=== PATIENT | male | born 1950 | race African-American/Black ===

== ENCOUNTER 2020-02-11 15:01 | Inpatient (IN) | payer MEDICARE, MEDICAID ==
[~2020-02-11] VITALS: Ht 182.9 cm; Wt 70.8 kg
[2020-02-11] MEDS ORDERED: AZITHROMYCIN 500 MG TABLET PO ONE (15:30)
[2020-02-11] MEDS ORDERED: CEFTRIAXONE 1 G PREMIX 50 ML IV ONE (15:30)
[2020-02-11] MEDS ORDERED: FUROSEMIDE 20MG/2ML VIAL IVP ONE (15:30)
[2020-02-11 15:42] LABS: BASOPHILS % 1.1 % (0.0-2.0); EOSINOPHILS % 0.1 % (0.0-5.0); HEMATOCRIT. 51.1 % (42.0-52.0); HEMOGLOBIN. 16.3 g/dL (14.0-18.0); LYMPHOCYTES % 12.5 % (20.0-50.0); MEAN CORPUSCULAR HEMOGLOBIN 28.7 pg (28.0-32.0); MEAN PLATELET VOLUME 7.3 fl (7.4-10.4); MONOCYTES % 8.1 % (2.0-8.0); NEUTROPHILS % 78.2 % (40.0-76.0); PLATELET 175 x1000/uL (130-400); RED BLOOD CELL COUNT 5.68 mill/uL (4.7-6.1); RED CELL DISTRIBUTION WIDTH 16.3 % (11.6-14.6)
[2020-02-11 15:48] LABS: CHLORIDE 100 mEq/L (98-107)
[2020-02-11] MEDS ORDERED: NITROGLYCERIN 0.4MG TABLET SL SL ONE (16:00)
[2020-02-11] MEDS ORDERED: NITROGLYCERIN 50MG PREMIX 250 ML IV ONE (16:00)
[2020-02-11] MEDS ORDERED: MORPHINE SULFATE 2 MG/ML CPJ (NOT FOR IM USE) IV PRN (19:30)
[2020-02-11] MEDS ORDERED: ACETAMINOPHEN 325MG TABLET PO PRN (19:30)
[2020-02-11] MEDS ORDERED: ONDANSETRON HCL 4MG/2ML INJ IV PRN (19:30)
[2020-02-11] MEDS ORDERED: MAGNESIUM/ALUMINUM HYDROXIDE/SIMETHICONE 30ML UDC PO PRN (19:30)
[2020-02-11] MEDS ORDERED: GUAIFENESIN 200MG/10ML SUGAR FREE UDC PO PRN (19:30)
[2020-02-11] MEDS ORDERED: CLONIDINE 0.1MG TABLET PO PRN (19:30)
[2020-02-11] MEDS ORDERED: HYDROCODONE/ACETAMINOPHEN 5/325MG TABLET PO PRN (19:30)
[2020-02-11] MEDS ORDERED: DOCUSATE SODIUM 100MG CAPSULE PO PRN (19:30)
[2020-02-11] MEDS ORDERED: ENOXAPARIN 40MG/0.4ML SYR SUBCUT SCH (21:00)
[2020-02-11] MEDS ORDERED: HYDRALAZINE 20MG/ML VIAL IV PRN (23:00)
[2020-02-11] MEDS ORDERED: NITROGLYCERIN OINT 1GM/INCH UDPKT TD PRN (23:15)
[2020-02-12] VITALS (49 sets, daily range): BP systolic 43–139; BP diastolic 19–98
[2020-02-12 00:12] LABS: CREATINE KINASE 25 IU/L (39-308)
[2020-02-12] MEDS ORDERED: ASPI-1158 PO (05:10)
[2020-02-12] MEDS ORDERED: OMEP40CA12 PO (05:10)
[2020-02-12] MEDS ORDERED: MONT10TA26 PO (05:10)
[2020-02-12] MEDS ORDERED: TAMS-11 PO (05:11)
[2020-02-12] MEDS ORDERED: ASCO500C15 PO (05:11)
[2020-02-12] MEDS ORDERED: TRAM50TA3 PO (05:11)
[2020-02-12] MEDS: FUROSEMIDE 40MG/4ML VIAL IV SCH (09:00)
[2020-02-12] MEDS ORDERED: METHYLPREDNISOLONE SOD SUCC 40 MG/ML VIAL IV SCH (09:00)
[2020-02-12] MEDS: AMLODIPINE 10MG TABLET PO SCH (09:00)
[2020-02-12] MEDS ORDERED: PROPOFOL 10MG/ML 100ML 100 ML IV PRN (09:15)
[2020-02-12 09:32] LABS: HEMATOCRIT. 49.3 % (42.0-52.0); HEMOGLOBIN. 14.6 g/dL (14.0-18.0); MEAN CORPUSCULAR HEMOGLOBIN 28.2 pg (28.0-32.0); MEAN CORPUSCULAR VOLUME 95.3 fL (80.0-94.0); MEAN PLATELET VOLUME 8.3 fl (7.4-10.4); PLATELET 154 x1000/uL (130-400); RED BLOOD CELL COUNT 5.17 mill/uL (4.7-6.1); RED CELL DISTRIBUTION WIDTH 16.2 % (11.6-14.6)
[2020-02-12 09:33] LABS: CHLORIDE 106 mEq/L (98-107)
[2020-02-12 09:39] LABS: LDL CHOLESTEROL 104 mg/dL (5-100)
[2020-02-12 09:40] LABS: CREATINE KINASE 82 IU/L (39-308); HDL CHOLESTEROL 26 mg/dL (40-59)
[2020-02-12] MEDS ORDERED: PHENYLEPHRINE 40 MG in DEXT 5% WATER 246 ML IV PRN (09:45)
[2020-02-12] MEDS: PHENYLEPHRINE 40 MG in DEXT 5% WATER 246 ML IV PRN ×4 (09:52→22:17)
[2020-02-12] MEDS: FENTANYL CITRATE/PF 1,000 MCG in SODIUM CHLORIDE 0.9% 80 ML IV PRN (09:53)
[2020-02-12] MEDS ORDERED: NOREPINEPHRINE 32 MG in DEXT 5% WATER 468 ML IV PRN (10:00)
[2020-02-12 10:12] LABS: BG BASE EXCESS -0.1 mmol/L (-2.0-2.0); BG CARBOXYHEMOGLOBIN 1.1 % (0.5-1.5); BG DEOXYHEMOGLOBIN 1.9 % (0.0-5.0); BG FRACTION INSPIRED OXYGEN 100; BG HCO3 ACT 34.3 mmol/L (22.0-26.0); BG METHEMOGLOBIN 0.6 % (0.0-1.5); BG OXYGEN SATURATION 98.1 % (92.0-98.5); BG OXYHEMOGLOBIN 96.4 % (94.0-97.0); BG PCO2 119.5 mmHg (35.0-45.0); BG PH 7.076 (7.350-7.450); BG PO2 110.3 mmHg (75.0-100.0); BG SAMPLE SITE RIGHT RADIAL; BG TIDAL VOLUME(mL) 500 mL; BG TOTAL HEMOGLOBIN 15.5 g/dL (12.0-18.0); BG VENT MODE VENT - A/C; BG VENT RATE 14 set
[2020-02-12] MEDS: ENOXAPARIN 40MG/0.4ML SYR SUBCUT SCH (10:49)
[2020-02-12] MEDS: VASOPRESSIN 10 UNIT in SODIUM CHLORIDE 0.9% 99.5 ML IV PRN ×3 (12:00→20:28)
[2020-02-12 12:08] LABS: NUCLEATED RED BLOOD CELLS 1 /100 WBC; PLATELET ESTIMATE NORMAL
[2020-02-12] MEDS ORDERED: CEFTRIAXONE 1,000 MG in DEXTROSE 5% WATER 50 ML IV SCH (13:00)
[2020-02-12 13:27] LABS: BG CARBOXYHEMOGLOBIN 1.3 % (0.5-1.5); BG FRACTION INSPIRED OXYGEN 100; BG HCO3 ACT 29.5 mmol/L (22.0-26.0); BG METHEMOGLOBIN 0.4 % (0.0-1.5); BG OXYGEN SATURATION 90.8 % (92.0-98.5); BG OXYHEMOGLOBIN 89.3 % (94.0-97.0); BG PCO2 68.7 mmHg (35.0-45.0); BG PH 7.251 (7.350-7.450); BG PO2 58.4 mmHg (75.0-100.0); BG SAMPLE SITE RIGHT RADIAL; BG TIDAL VOLUME(mL) 500 mL; BG TOTAL HEMOGLOBIN 16.5 g/dL (12.0-18.0); BG VENT MODE VENT - A/C; BG VENT RATE 24 set
[2020-02-12] MEDS ORDERED: AZITHROMYCIN 500 MG in DEXT 5% WATER 250 ML IV SCH ×2 (14:00→16:00)
[2020-02-12] MEDS: PIPERACILLIN/TAZOBACTAM 3.375 G in DEXT 5% WATER 100 ML IV SCH ×2 (15:23→22:16)
[2020-02-12] MEDS ORDERED: CEFTRIAXONE 1 G PREMIX 50 ML IV SCH (16:00)
[2020-02-12] MEDS: VANCOMYCIN 1250MG in DEXTROSE 5% WATER 250ML IV SCH (16:00)
[2020-02-12 20:56] LABS: INR 1.7
[2020-02-12] MEDS: METHYLPREDNISOLONE SOD SUCC 40 MG/ML VIAL IV SCH (22:16)
[2020-02-13] VITALS (42 sets, daily range): BP systolic 70–151; BP diastolic 44–129
[2020-02-13] MEDS: VASOPRESSIN 10 UNIT in SODIUM CHLORIDE 0.9% 99.5 ML IV PRN ×2 (00:34→06:20)
[2020-02-13] MEDS: PHENYLEPHRINE 40 MG in DEXT 5% WATER 246 ML IV PRN ×2 (06:21→07:28)
[2020-02-13] MEDS: PIPERACILLIN/TAZOBACTAM 3.375 G in DEXT 5% WATER 100 ML IV SCH ×4 (06:23→20:20)
[2020-02-13] MEDS: METHYLPREDNISOLONE SOD SUCC 40 MG/ML VIAL IV SCH ×3 (06:49→20:20)
[2020-02-13] MEDS: AMLODIPINE 10MG TABLET PO SCH (09:00)
[2020-02-13 09:17] LABS: BG BASE EXCESS 1.7 mmol/L (-2.0-2.0); BG CARBOXYHEMOGLOBIN 0.9 % (0.5-1.5); BG DEOXYHEMOGLOBIN 5.6 % (0.0-5.0); BG FRACTION INSPIRED OXYGEN 100; BG HCO3 ACT 28.1 mmol/L (22.0-26.0); BG METHEMOGLOBIN 0.3 % (0.0-1.5); BG OXYGEN SATURATION 94.3 % (92.0-98.5); BG OXYHEMOGLOBIN 93.2 % (94.0-97.0); BG PH 7.367 (7.350-7.450); BG PO2 72.4 mmHg (75.0-100.0); BG SAMPLE SITE RIGHT BRACHIAL; BG TIDAL VOLUME(mL) 500 mL; BG TOTAL HEMOGLOBIN 16.2 g/dL (12.0-18.0); BG VENT MODE VENT - A/C; BG VENT RATE 24 set
[2020-02-13] MEDS: FUROSEMIDE 40MG/4ML VIAL IV SCH (09:29)
[2020-02-13] MEDS: ENOXAPARIN 40MG/0.4ML SYR SUBCUT SCH (09:29)
[2020-02-13] MEDS: VANCOMYCIN 1250MG in DEXTROSE 5% WATER 250ML IV SCH (12:48)
[2020-02-13] MEDS: PANTOPRAZOLE SODIUM 40 MG/VIAL IV SCH (13:46)
[2020-02-13] MEDS: METOPROLOL TARTRATE 5MG/5ML VIAL IV PRN (16:26)
[2020-02-13] MEDS: FENTANYL CITRATE/PF 1,000 MCG in SODIUM CHLORIDE 0.9% 80 ML IV PRN (16:33)
[2020-02-13 16:54] LABS: HEMATOCRIT. 45.1 % (42.0-52.0); HEMOGLOBIN. 14.4 g/dL (14.0-18.0); MEAN CORPUSCULAR HEMOGLOBIN 28.4 pg (28.0-32.0); MEAN CORPUSCULAR VOLUME 89.2 fL (80.0-94.0); MEAN PLATELET VOLUME 8.9 fl (7.4-10.4); PLATELET 109 x1000/uL (130-400); RED BLOOD CELL COUNT 5.06 mill/uL (4.7-6.1); RED CELL DISTRIBUTION WIDTH 16.5 % (11.6-14.6)
[2020-02-13 17:40] LABS: PLATELET ESTIMATE DECREASED
[2020-02-13] MEDS: PHENYLEPHRINE 80 MG in DEXT 5% WATER 492 ML IV PRN (19:50)
[2020-02-13 22:41] LABS: CLARITY URINE CLOUDY (CLEAR); COLOR URINE YELLOW (YELLOW); KETONES URINE TRACE (NEGATIVE); LEUKOCYTE ESTERASE URINE NEGATIVE (NEGATIVE); NITRITE URINE NEGATIVE (NEGATIVE); OCCULT BLOOD URINE 3+ (NEGATIVE); PROTEIN URINE 1+ (NEGATIVE); SPECIFIC GRAVITY URINE 1.027 (1.005-1.030); UROBILINOGEN URINE 0.2 E.U./dL (0.2-1.0)
[2020-02-14] VITALS (90 sets, daily range): BP systolic 57–196; BP diastolic 22–134
[2020-02-14] MEDS: PIPERACILLIN/TAZOBACTAM 3.375 G in DEXT 5% WATER 100 ML IV SCH ×2 (02:04→08:04)
[2020-02-14] MEDS: METOPROLOL TARTRATE 5MG/5ML VIAL IV PRN ×3 (02:26→23:36)
[2020-02-14] MEDS: METHYLPREDNISOLONE SOD SUCC 40 MG/ML VIAL IV SCH (03:26)
[2020-02-14] MEDS: PHENYLEPHRINE 80 MG in DEXT 5% WATER 492 ML IV PRN ×2 (04:01→12:40)
[2020-02-14] MEDS: FENTANYL CITRATE/PF 1,000 MCG in SODIUM CHLORIDE 0.9% 80 ML IV PRN ×2 (04:07→14:45)
[2020-02-14] MEDS: VANCOMYCIN 1250MG in DEXTROSE 5% WATER 250ML IV SCH (04:28)
[2020-02-14 06:19] LABS: HEMATOCRIT. 44.5 % (42.0-52.0); HEMOGLOBIN. 14.2 g/dL (14.0-18.0); MEAN CORPUSCULAR HEMOGLOBIN 28.3 pg (28.0-32.0); MEAN CORPUSCULAR VOLUME 88.8 fL (80.0-94.0); MEAN PLATELET VOLUME 8.5 fl (7.4-10.4); PLATELET 115 x1000/uL (130-400); RED BLOOD CELL COUNT 5.01 mill/uL (4.7-6.1); RED CELL DISTRIBUTION WIDTH 16.8 % (11.6-14.6)
[2020-02-14 07:18] LABS: BG BASE EXCESS -2.6 mmol/L (-2.0-2.0); BG CARBOXYHEMOGLOBIN 0.4 % (0.5-1.5); BG FRACTION INSPIRED OXYGEN 95; BG HCO3 ACT 24.6 mmol/L (22.0-26.0); BG METHEMOGLOBIN 0.3 % (0.0-1.5); BG OXYGEN SATURATION 86.9 % (92.0-98.5); BG OXYHEMOGLOBIN 86.3 % (94.0-97.0); BG PCO2 51.9 mmHg (35.0-45.0); BG PH 7.294 (7.350-7.450); BG PO2 59.2 mmHg (75.0-100.0); BG SAMPLE SITE RIGHT RADIAL; BG TIDAL VOLUME(mL) 500 mL; BG TOTAL HEMOGLOBIN 15.5 g/dL (12.0-18.0); BG VENT MODE VENT - A/C; BG VENT RATE 24 set
[2020-02-14] MEDS: PANTOPRAZOLE SODIUM 40 MG/VIAL IV SCH (08:03)
[2020-02-14] MEDS: FUROSEMIDE 40MG/4ML VIAL IV SCH (08:03)
[2020-02-14] MEDS: ENOXAPARIN 40MG/0.4ML SYR SUBCUT SCH (08:03)
[2020-02-14] MEDS: AMLODIPINE 10MG TABLET PO SCH (08:04)
[2020-02-14] MEDS ORDERED: CEFEPIME 1,000 MG in DEXTROSE 5% WATER 50 ML IV SCH ×2 (12:30→14:00)
[2020-02-14 13:51] LABS: PLATELET ESTIMATE DECREASED
[2020-02-14] MEDS: METRONIDAZOLE 500 MG PREMIX 100 ML IV SCH ×2 (14:37→22:11)
[2020-02-14] MEDS ORDERED: LEVOFLOXACIN 500MG TABLET PO SCH (15:15)
[2020-02-14] MEDS ORDERED: PIPERACILLIN/TAZOBACTAM 2.25 G in DEXTROSE 5% WATER 50 ML IV SCH (16:00)
[2020-02-14] MEDS ORDERED: DOCUSATE SODIUM 100MG CAPSULE NG PRN (18:00)
[2020-02-14] MEDS: DEXT 5%/0.9% NACL 1,000 ML IV SCH (18:03)
[2020-02-14] MEDS: ENOXAPARIN 60MG/0.6ML SYR SUBCUT SCH (22:11)
[2020-02-15] VITALS (77 sets, daily range): BP systolic 59–200; BP diastolic 15–134
[2020-02-15] MEDS: PHENYLEPHRINE 80 MG in DEXT 5% WATER 492 ML IV PRN ×3 (01:32→21:38)
[2020-02-15] MEDS: METRONIDAZOLE 500 MG PREMIX 100 ML IV SCH ×3 (06:02→23:25)
[2020-02-15] MEDS: PANTOPRAZOLE SODIUM 40 MG/VIAL IV SCH (09:10)
[2020-02-15] MEDS: METHYLPREDNISOLONE SOD SUCC 40 MG/ML VIAL IV SCH (09:10)
[2020-02-15 09:58] LABS: BG BASE EXCESS -2.6 mmol/L (-2.0-2.0); BG CARBOXYHEMOGLOBIN 0.8 % (0.5-1.5); BG FRACTION INSPIRED OXYGEN 100; BG HCO3 ACT 26.3 mmol/L (22.0-26.0); BG METHEMOGLOBIN 0.3 % (0.0-1.5); BG OXYGEN SATURATION 83.8 % (92.0-98.5); BG OXYHEMOGLOBIN 82.9 % (94.0-97.0); BG PCO2 62.5 mmHg (35.0-45.0); BG PH 7.242 (7.350-7.450); BG PO2 57.2 mmHg (75.0-100.0); BG SAMPLE SITE RIGHT RADIAL; BG TIDAL VOLUME(mL) 500 mL; BG TOTAL HEMOGLOBIN 15.8 g/dL (12.0-18.0); BG VENT MODE VENT - A/C; BG VENT RATE 26 set
[2020-02-15] MEDS: FENTANYL CITRATE/PF 1,000 MCG in SODIUM CHLORIDE 0.9% 80 ML IV PRN ×4 (10:54→23:54)
[2020-02-15 12:19] LABS: HEMATOCRIT. 48.2 % (42.0-52.0); HEMOGLOBIN. 14.9 g/dL (14.0-18.0); MEAN CORPUSCULAR VOLUME 90.3 fL (80.0-94.0); MEAN PLATELET VOLUME 9.3 fl (7.4-10.4); PLATELET 97 x1000/uL (130-400); RED BLOOD CELL COUNT 5.34 mill/uL (4.7-6.1)
[2020-02-15 12:46] LABS: CHLORIDE 95 mEq/L (98-107)
[2020-02-15 13:03] LABS: BG BASE EXCESS -2.6 mmol/L (-2.0-2.0); BG CARBOXYHEMOGLOBIN 0.7 % (0.5-1.5); BG DEOXYHEMOGLOBIN 9.5 % (0.0-5.0); BG FRACTION INSPIRED OXYGEN 100; BG HCO3 ACT 24.3 mmol/L (22.0-26.0); BG METHEMOGLOBIN 0.4 % (0.0-1.5); BG OXYGEN SATURATION 90.4 % (92.0-98.5); BG OXYHEMOGLOBIN 89.4 % (94.0-97.0); BG PCO2 49.4 mmHg (35.0-45.0); BG PH 7.309 (7.350-7.450); BG PO2 65.7 mmHg (75.0-100.0); BG SAMPLE SITE RIGHT BRACHIAL; BG TOTAL HEMOGLOBIN 15.6 g/dL (12.0-18.0); BG VENT MODE VENT - A/C; BG VENT RATE 28 set
[2020-02-15] MEDS ORDERED: SODIUM BICARBONATE 8.4% 1 MEQ/ML 50ML SYR IV SCH (13:15)
[2020-02-15 13:23] LABS: PLATELET ESTIMATE DECREASED
[2020-02-15] MEDS: CEFEPIME 2,000 MG in DEXT 5% WATER 100 ML IV SCH (14:00)
[2020-02-15 14:37] LABS: BG TIDAL VOLUME(mL) 550 mL
[2020-02-15 18:49] LABS: BG CARBOXYHEMOGLOBIN 0.9 % (0.5-1.5); BG DEOXYHEMOGLOBIN 2.1 % (0.0-5.0); BG FRACTION INSPIRED OXYGEN 100; BG HCO3 ACT 26.3 mmol/L (22.0-26.0); BG METHEMOGLOBIN 0.3 % (0.0-1.5); BG OXYGEN SATURATION 97.9 % (92.0-98.5); BG OXYHEMOGLOBIN 96.7 % (94.0-97.0); BG PCO2 48.8 mmHg (35.0-45.0); BG PH 7.349 (7.350-7.450); BG PO2 106.9 mmHg (75.0-100.0); BG SAMPLE SITE LEFT RADIAL; BG TIDAL VOLUME(mL) 550 mL; BG TOTAL HEMOGLOBIN 15.6 g/dL (12.0-18.0); BG VENT MODE VENT - A/C; BG VENT RATE 20 set
[2020-02-15] MEDS: ENOXAPARIN 60MG/0.6ML SYR SUBCUT SCH (21:23)
[2020-02-16] VITALS (86 sets, daily range): BP systolic 61–177; BP diastolic 21–135
[2020-02-16] MEDS: DEXT 5%/0.9% NACL 1,000 ML IV SCH ×2 (03:05→19:45)
[2020-02-16] MEDS: METRONIDAZOLE 500 MG PREMIX 100 ML IV SCH ×3 (05:06→21:12)
[2020-02-16] MEDS: PHENYLEPHRINE 80 MG in DEXT 5% WATER 492 ML IV PRN ×2 (05:38→16:08)
[2020-02-16 06:03] LABS: HEMOGLOBIN. 13.9 g/dL (14.0-18.0); MEAN CORPUSCULAR HEMOGLOBIN 27.8 pg (28.0-32.0); MEAN CORPUSCULAR VOLUME 89.7 fL (80.0-94.0); PLATELET 77 x1000/uL (130-400); RED BLOOD CELL COUNT 5.01 mill/uL (4.7-6.1); RED CELL DISTRIBUTION WIDTH 16.6 % (11.6-14.6)
[2020-02-16 08:29] LABS: BG VENT MODE VENT - A/C
[2020-02-16] MEDS: PANTOPRAZOLE SODIUM 40 MG/VIAL IV SCH (09:41)
[2020-02-16] MEDS: METHYLPREDNISOLONE SOD SUCC 40 MG/ML VIAL IV SCH (09:41)
[2020-02-16 11:27] LABS: PLATELET ESTIMATE DECREASED
[2020-02-16] MEDS: CEFEPIME 2,000 MG in DEXT 5% WATER 100 ML IV SCH (13:38)
[2020-02-16 18:03] LABS: BG DEOXYHEMOGLOBIN 1.2 % (0.0-5.0); BG FRACTION INSPIRED OXYGEN 100; BG HCO3 ACT 23.9 mmol/L (22.0-26.0); BG METHEMOGLOBIN 0.5 % (0.0-1.5); BG OXYGEN SATURATION 98.8 % (92.0-98.5); BG OXYHEMOGLOBIN 98.3 % (94.0-97.0); BG PCO2 44.8 mmHg (35.0-45.0); BG PH 7.345 (7.350-7.450); BG PO2 157.9 mmHg (75.0-100.0); BG SAMPLE SITE RIGHT BRACHIAL; BG TIDAL VOLUME(mL) 550 mL; BG TOTAL HEMOGLOBIN 15.2 g/dL (12.0-18.0); BG VENT MODE VENT - A/C; BG VENT RATE 30 set
[2020-02-16 18:33] LABS: BG SAMPLE SITE R BRACHIAL
[2020-02-16 18:34] LABS: BG FRACTION INSPIRED OXYGEN 100; BG PEEP (cmH2O) 10 cmH2O; BG TIDAL VOLUME(mL) 550 mL; BG VENT RATE 30 set
[2020-02-16 18:35] LABS: BG PH 7.195 (7.350-7.450)
[2020-02-16 18:36] LABS: BG HCO3 ACT 27.2 mmol/L (22.0-26.0); BG PO2 176.4 mmHg (75.0-100.0)
[2020-02-16 18:37] LABS: BG TOTAL HEMOGLOBIN 15.7 g/dL (12.0-18.0)
[2020-02-16 18:38] LABS: BG CARBOXYHEMOGLOBIN 0.6 % (0.5-1.5); BG METHEMOGLOBIN 0.5 % (0.0-1.5); BG OXYHEMOGLOBIN 97.9 % (94.0-97.0)
[2020-02-16] MEDS ORDERED: DIGOXIN 500MCG/2ML AMP IV NR (19:00)
[2020-02-16] MEDS: FENTANYL CITRATE/PF 1,000 MCG in SODIUM CHLORIDE 0.9% 80 ML IV PRN (21:18)
[2020-02-17] VITALS (93 sets, daily range): BP systolic 73–200; BP diastolic 37–99
[2020-02-17] MEDS: PHENYLEPHRINE 80 MG in DEXT 5% WATER 492 ML IV PRN ×2 (01:05→10:01)
[2020-02-17 06:03] LABS: HEMATOCRIT. 44.2 % (42.0-52.0); HEMOGLOBIN. 13.9 g/dL (14.0-18.0); MEAN CORPUSCULAR HEMOGLOBIN 27.9 pg (28.0-32.0); MEAN CORPUSCULAR VOLUME 88.8 fL (80.0-94.0); MEAN PLATELET VOLUME 9.9 fl (7.4-10.4); PLATELET 65 x1000/uL (130-400); RED BLOOD CELL COUNT 4.98 mill/uL (4.7-6.1); RED CELL DISTRIBUTION WIDTH 16.6 % (11.6-14.6)
[2020-02-17] MEDS: METRONIDAZOLE 500 MG PREMIX 100 ML IV SCH ×3 (06:15→21:20)
[2020-02-17] MEDS: FENTANYL CITRATE/PF 1,000 MCG in SODIUM CHLORIDE 0.9% 80 ML IV PRN ×2 (06:39→18:17)
[2020-02-17 08:28] LABS: PLATELET ESTIMATE DECREASED
[2020-02-17 09:29] LABS: BG BASE EXCESS -0.5 mmol/L (-2.0-2.0); BG CARBOXYHEMOGLOBIN 0.4 % (0.5-1.5); BG DEOXYHEMOGLOBIN 4.4 % (0.0-5.0); BG FRACTION INSPIRED OXYGEN 85; BG HCO3 ACT 26.2 mmol/L (22.0-26.0); BG OXYGEN SATURATION 95.6 % (92.0-98.5); BG OXYHEMOGLOBIN 95.2 % (94.0-97.0); BG PCO2 50.8 mmHg (35.0-45.0); BG PO2 85.3 mmHg (75.0-100.0); BG SAMPLE SITE LEFT RADIAL; BG TIDAL VOLUME(mL) 550 mL; BG TOTAL HEMOGLOBIN 15.4 g/dL (12.0-18.0); BG VENT MODE VENT - A/C; BG VENT RATE 30 set
[2020-02-17] MEDS: METHYLPREDNISOLONE SOD SUCC 40 MG/ML VIAL IV SCH (09:31)
[2020-02-17] MEDS: PANTOPRAZOLE SODIUM 40 MG/VIAL IV SCH (09:32)
[2020-02-17 12:34] LABS: BG CARBOXYHEMOGLOBIN 1.2 % (0.5-1.5); BG DEOXYHEMOGLOBIN 7.7 % (0.0-5.0); BG FRACTION INSPIRED OXYGEN 75; BG HCO3 ACT 26.5 mmol/L (22.0-26.0); BG METHEMOGLOBIN 0.5 % (0.0-1.5); BG OXYGEN SATURATION 92.2 % (92.0-98.5); BG OXYHEMOGLOBIN 90.6 % (94.0-97.0); BG PCO2 54.9 mmHg (35.0-45.0); BG PH 7.301 (7.350-7.450); BG PO2 70.2 mmHg (75.0-100.0); BG SAMPLE SITE RIGHT RADIAL; BG TIDAL VOLUME(mL) 550 mL; BG TOTAL HEMOGLOBIN 15.4 g/dL (12.0-18.0); BG VENT MODE VENT - A/C; BG VENT RATE 20 set
[2020-02-17] MEDS ORDERED: MIDODRINE HCL 2.5MG TABLET PO SCH (14:30)
[2020-02-17] MEDS: CEFEPIME 2,000 MG in DEXT 5% WATER 100 ML IV SCH (14:37)
[2020-02-18] VITALS (78 sets, daily range): BP systolic 87–139; BP diastolic 42–87
[2020-02-18] MEDS: PHENYLEPHRINE 80 MG in DEXT 5% WATER 492 ML IV PRN (00:05)
[2020-02-18] MEDS: METRONIDAZOLE 500 MG PREMIX 100 ML IV SCH ×3 (05:47→21:24)
[2020-02-18] MEDS: FENTANYL CITRATE/PF 1,000 MCG in SODIUM CHLORIDE 0.9% 80 ML IV PRN (07:35)
[2020-02-18] MEDS: METHYLPREDNISOLONE SOD SUCC 40 MG/ML VIAL IV SCH (08:39)
[2020-02-18] MEDS: PANTOPRAZOLE SODIUM 40 MG/VIAL IV SCH (08:39)
[2020-02-18 09:42] LABS: BG BASE EXCESS -2.2 mmol/L (-2.0-2.0); BG CARBOXYHEMOGLOBIN 0.8 % (0.5-1.5); BG DEOXYHEMOGLOBIN 4.8 % (0.0-5.0); BG FRACTION INSPIRED OXYGEN 80; BG HCO3 ACT 25.4 mmol/L (22.0-26.0); BG METHEMOGLOBIN 0.3 % (0.0-1.5); BG OXYGEN SATURATION 95.1 % (92.0-98.5); BG OXYHEMOGLOBIN 94.1 % (94.0-97.0); BG PCO2 54.8 mmHg (35.0-45.0); BG PH 7.284 (7.350-7.450); BG PO2 82.3 mmHg (75.0-100.0); BG SAMPLE SITE RIGHT RADIAL; BG TIDAL VOLUME(mL) 550 mL; BG VENT MODE VENT - A/C; BG VENT RATE 20 set
[2020-02-18] MEDS: AMIODARONE HCL 900 MG in DEXT 5% WATER 500 ML IV SCH (11:25)
[2020-02-18] MEDS: CEFEPIME 2,000 MG in DEXT 5% WATER 100 ML IV SCH (13:10)
[2020-02-18 15:26] LABS: HEMATOCRIT. 44.9 % (42.0-52.0); MEAN CORPUSCULAR HEMOGLOBIN 27.8 pg (28.0-32.0); MEAN PLATELET VOLUME 10.4 fl (7.4-10.4); PLATELET 63 x1000/uL (130-400); RED BLOOD CELL COUNT 5.05 mill/uL (4.7-6.1); RED CELL DISTRIBUTION WIDTH 17.3 % (11.6-14.6)
[2020-02-18 17:23] LABS: NUCLEATED RED BLOOD CELLS 1 /100 WBC; PLATELET ESTIMATE DECREASED
[2020-02-19] VITALS (79 sets, daily range): BP systolic 98–147; BP diastolic 52–104
[2020-02-19] MEDS: METRONIDAZOLE 500 MG PREMIX 100 ML IV SCH (05:19)
[2020-02-19 06:38] LABS: HEMATOCRIT. 44.7 % (42.0-52.0); HEMOGLOBIN. 13.9 g/dL (14.0-18.0); MEAN CORPUSCULAR HEMOGLOBIN 27.8 pg (28.0-32.0); MEAN CORPUSCULAR VOLUME 89.3 fL (80.0-94.0); MEAN PLATELET VOLUME 10.2 fl (7.4-10.4); PLATELET 62 x1000/uL (130-400); RED CELL DISTRIBUTION WIDTH 17.1 % (11.6-14.6)
[2020-02-19] MEDS ORDERED: SODIUM POLYSTYRENE SULFONATE 15 G/60 ML BOT PO NR (08:00)
[2020-02-19] MEDS: PANTOPRAZOLE SODIUM 40 MG/VIAL IV SCH (08:24)
[2020-02-19] MEDS: FENTANYL CITRATE/PF 1,000 MCG in SODIUM CHLORIDE 0.9% 80 ML IV PRN (08:27)
[2020-02-19] MEDS: AMIODARONE HCL 900 MG in DEXT 5% WATER 500 ML IV SCH (09:04)
[2020-02-19 09:09] LABS: BG BASE EXCESS -1.1 mmol/L (-2.0-2.0); BG CARBOXYHEMOGLOBIN 1.1 % (0.5-1.5); BG DEOXYHEMOGLOBIN 2.1 % (0.0-5.0); BG FRACTION INSPIRED OXYGEN 75; BG HCO3 ACT 27.3 mmol/L (22.0-26.0); BG METHEMOGLOBIN 0.3 % (0.0-1.5); BG OXYGEN SATURATION 97.9 % (92.0-98.5); BG OXYHEMOGLOBIN 96.5 % (94.0-97.0); BG PCO2 61.6 mmHg (35.0-45.0); BG PH 7.265 (7.350-7.450); BG PO2 107.9 mmHg (75.0-100.0); BG SAMPLE SITE RIGHT RADIAL; BG TIDAL VOLUME(mL) 550 mL; BG TOTAL HEMOGLOBIN 14.8 g/dL (12.0-18.0); BG VENT MODE VENT - A/C; BG VENT RATE 20 set
[2020-02-19 12:13] LABS: PLATELET ESTIMATE DECREASED
[2020-02-19] MEDS ORDERED: HEPARIN SODIUM 1,000 UNIT/1ML VIAL IV ONE (12:14)
[2020-02-19] MEDS ORDERED: MIDAZOLAM HCL 2 MG/2 ML VIAL ONE (12:34)
[2020-02-19] MEDS ORDERED: IODIXANOL 320MG/ML 100 ML BOTTLE IV ONE (12:35)
[2020-02-19] MEDS ORDERED: LIDOCAINE HCL 1% 20ML VIAL (Pyxis) INJ ONE (12:35)
[2020-02-19] MEDS ORDERED: FENTANYL CITRATE/PF 50MCG/ML 2ML VIAL ONE (12:35)
[2020-02-19] MEDS ORDERED: HEPARIN 25,000 UNITS PREMIX 500 ML IV SCH ×2 (13:30→13:45)
[2020-02-19] MEDS ORDERED: ALTEPLASE 4 MG in SODIUM CHLORIDE 0.9% 100 ML IV ONE ×2 (13:30→13:45)
[2020-02-19] MEDS ORDERED: ALTEPLASE 2MG/VIAL ITC ONE (13:30)
[2020-02-19] MEDS: ALTEPLASE 4 MG in SODIUM CHLORIDE 0.9% 100 ML IV SCH ×2 (15:47→22:53)
[2020-02-19] MEDS: CEFEPIME 2,000 MG in DEXT 5% WATER 100 ML IV SCH (15:48)
[2020-02-19] MEDS: METOCLOPRAMIDE HCL 10MG/2ML VIAL IV SCH (17:43)
[2020-02-19 21:29] LABS: HEMATOCRIT. 42.3 % (42.0-52.0); HEMOGLOBIN. 13.4 g/dL (14.0-18.0); MEAN CORPUSCULAR HEMOGLOBIN 28.1 pg (28.0-32.0); MEAN CORPUSCULAR VOLUME 88.8 fL (80.0-94.0); MEAN PLATELET VOLUME 9.7 fl (7.4-10.4); RED BLOOD CELL COUNT 4.76 mill/uL (4.7-6.1)
[2020-02-19 21:47] LABS: PLATELET 45 x1000/uL (130-400)
[2020-02-19 22:33] LABS: NUCLEATED RED BLOOD CELLS 2 /100 WBC
[2020-02-19 22:34] LABS: PLATELET ESTIMATE MARKEDLY DECREASED
[2020-02-20] VITALS (93 sets, daily range): BP systolic 92–146; BP diastolic 27–121
[2020-02-20] MEDS: METOCLOPRAMIDE HCL 10MG/2ML VIAL IV SCH ×5 (00:18→23:27)
[2020-02-20 00:32] LABS: HEMATOCRIT. 42.1 % (42.0-52.0); HEMOGLOBIN. 13.3 g/dL (14.0-18.0); MEAN CORPUSCULAR HEMOGLOBIN 27.9 pg (28.0-32.0); MEAN CORPUSCULAR VOLUME 88.4 fL (80.0-94.0); MEAN PLATELET VOLUME 10.2 fl (7.4-10.4); PLATELET 51 x1000/uL (130-400); RED BLOOD CELL COUNT 4.77 mill/uL (4.7-6.1); RED CELL DISTRIBUTION WIDTH 16.9 % (11.6-14.6)
[2020-02-20 01:35] LABS: NUCLEATED RED BLOOD CELLS 1 /100 WBC; PLATELET ESTIMATE MARKEDLY DECREASED
[2020-02-20] MEDS: FENTANYL CITRATE/PF 1,000 MCG in SODIUM CHLORIDE 0.9% 80 ML IV PRN ×2 (05:36→20:53)
[2020-02-20 05:53] LABS: HEMATOCRIT. 42.1 % (42.0-52.0); HEMOGLOBIN. 13.4 g/dL (14.0-18.0); MEAN CORPUSCULAR HEMOGLOBIN 28.1 pg (28.0-32.0); MEAN CORPUSCULAR VOLUME 88.4 fL (80.0-94.0); MEAN PLATELET VOLUME 10.6 fl (7.4-10.4); PLATELET 54 x1000/uL (130-400); RED BLOOD CELL COUNT 4.76 mill/uL (4.7-6.1); RED CELL DISTRIBUTION WIDTH 16.8 % (11.6-14.6)
[2020-02-20 05:57] LABS: INR 1.6; PARTIAL THROMBOPLASTIN TIME 46.3 sec (23.4-31.0)
[2020-02-20] MEDS ORDERED: SODIUM CHLORIDE 0.9% IV SCH (07:00)
[2020-02-20] MEDS ORDERED: ALTEPLASE IV SCH (07:00)
[2020-02-20 08:33] LABS: BG BASE EXCESS -1.5 mmol/L (-2.0-2.0); BG CARBOXYHEMOGLOBIN 0.5 % (0.5-1.5); BG DEOXYHEMOGLOBIN 2.6 % (0.0-5.0); BG FRACTION INSPIRED OXYGEN 65; BG HCO3 ACT 25.5 mmol/L (22.0-26.0); BG METHEMOGLOBIN 0.2 % (0.0-1.5); BG OXYGEN SATURATION 97.4 % (92.0-98.5); BG OXYHEMOGLOBIN 96.7 % (94.0-97.0); BG PCO2 52.1 mmHg (35.0-45.0); BG PH 7.308 (7.350-7.450); BG PO2 102.9 mmHg (75.0-100.0); BG SAMPLE SITE RIGHT RADIAL; BG TIDAL VOLUME(mL) 550 mL; BG TOTAL HEMOGLOBIN 14.5 g/dL (12.0-18.0); BG VENT MODE VENT - A/C; BG VENT RATE 24 set
[2020-02-20] MEDS: PANTOPRAZOLE SODIUM 40 MG/VIAL IV SCH (09:39)
[2020-02-20 10:42] LABS: PLATELET ESTIMATE MARKEDLY DECREASED
[2020-02-20] MEDS ORDERED: ALTEPLASE 4 MG in SODIUM CHLORIDE 0.9% 100 ML IV SCH (11:00)
[2020-02-20] MEDS ORDERED: DOCUSATE SODIUM SUGAR FREE 100MG/10ML UDC NG PRN (13:20)
[2020-02-20] MEDS: AMIODARONE HCL 200 MG TABLET PO SCH (15:30)
[2020-02-20] MEDS ORDERED: VANCOMYCIN 1250MG in DEXTROSE 5% WATER 250ML IV SCH (17:00)
[2020-02-20] MEDS: CEFEPIME 2,000 MG in DEXT 5% WATER 100 ML IV SCH (17:40)
[2020-02-20] MEDS: METRONIDAZOLE 500MG TABLET PO SCH (20:52)
[2020-02-21] VITALS (97 sets, daily range): BP systolic 78–126; BP diastolic 36–73
[2020-02-21 05:04] LABS: HEMATOCRIT. 44.7 % (42.0-52.0); HEMOGLOBIN. 14.1 g/dL (14.0-18.0); MEAN CORPUSCULAR HEMOGLOBIN 27.8 pg (28.0-32.0); MEAN CORPUSCULAR VOLUME 88.3 fL (80.0-94.0); MEAN PLATELET VOLUME 10.4 fl (7.4-10.4); PLATELET 65 x1000/uL (130-400); RED BLOOD CELL COUNT 5.06 mill/uL (4.7-6.1); RED CELL DISTRIBUTION WIDTH 17.2 % (11.6-14.6)
[2020-02-21 05:14] LABS: INR 1.6; PARTIAL THROMBOPLASTIN TIME 37.7 sec (23.4-31.0); PROTHROMBIN TIME 16.1 sec (9.6-11.0)
[2020-02-21] MEDS: METOCLOPRAMIDE HCL 10MG/2ML VIAL IV SCH ×4 (05:20→23:18)
[2020-02-21] MEDS ORDERED: SODIUM POLYSTYRENE SULFONATE 15 G/60 ML BOT PO SCH (07:30)
[2020-02-21 09:05] LABS: BG BASE EXCESS -6.4 mmol/L (-2.0-2.0); BG CARBOXYHEMOGLOBIN 0.9 % (0.5-1.5); BG DEOXYHEMOGLOBIN 4.5 % (0.0-5.0); BG FRACTION INSPIRED OXYGEN 60; BG HCO3 ACT 21.2 mmol/L (22.0-26.0); BG METHEMOGLOBIN 0.6 % (0.0-1.5); BG OXYGEN SATURATION 95.4 % (92.0-98.5); BG PCO2 50.3 mmHg (35.0-45.0); BG PH 7.243 (7.350-7.450); BG PO2 86.6 mmHg (75.0-100.0); BG SAMPLE SITE RIGHT RADIAL; BG TIDAL VOLUME(mL) 550 mL; BG TOTAL HEMOGLOBIN 14.7 g/dL (12.0-18.0); BG VENT MODE VENT - A/C; BG VENT RATE 24 set
[2020-02-21 09:06] LABS: IMMUNOGLOBULIN A 275 mg/dL (61-437); IMMUNOGLOBULIN G 992 mg/dL (603-1613); IMMUNOGLOBULIN M 104 mg/dL (20-172)
[2020-02-21] MEDS: FENTANYL CITRATE/PF 1,000 MCG in SODIUM CHLORIDE 0.9% 80 ML IV PRN (09:09)
[2020-02-21] MEDS: AMIODARONE HCL 200 MG TABLET PO SCH (09:10)
[2020-02-21] MEDS: METRONIDAZOLE 500MG TABLET PO SCH ×2 (09:10→21:16)
[2020-02-21] MEDS: PANTOPRAZOLE SODIUM 40 MG/VIAL IV SCH (09:10)
[2020-02-21] MEDS ORDERED: LIDOCAINE HCL 1% 20ML VIAL (Pyxis) INJ ONE (09:40)
[2020-02-21 13:27] LABS: PLATELET ESTIMATE DECREASED
[2020-02-21] MEDS: PHENYLEPHRINE 80 MG in DEXT 5% WATER 492 ML IV PRN (15:34)
[2020-02-21] MEDS: CEFEPIME 2,000 MG in DEXT 5% WATER 100 ML IV SCH (17:27)
[2020-02-21 20:12] LABS: HEPATITIS B SURFACE AB 6.9 mIU/mL
[2020-02-21 20:22] LABS: HEPATITIS B SURFACE ANTIGEN NEGATIVE
[2020-02-21 20:52] LABS: HEPATITIS A AB IGM NEGATIVE (NEGATIVE)
[2020-02-22] VITALS (73 sets, daily range): BP systolic 84–132; BP diastolic 40–77
[2020-02-22] MEDS: FENTANYL CITRATE/PF 1,000 MCG in SODIUM CHLORIDE 0.9% 80 ML IV PRN ×2 (00:04→14:10)
[2020-02-22] MEDS: METOCLOPRAMIDE HCL 10MG/2ML VIAL IV SCH ×4 (05:07→23:14)
[2020-02-22 06:12] LABS: HEMATOCRIT. 44.7 % (42.0-52.0); HEMOGLOBIN. 13.8 g/dL (14.0-18.0); MEAN CORPUSCULAR HEMOGLOBIN 27.5 pg (28.0-32.0); MEAN CORPUSCULAR VOLUME 89.1 fL (80.0-94.0); MEAN PLATELET VOLUME 10.4 fl (7.4-10.4); PLATELET 80 x1000/uL (130-400); RED BLOOD CELL COUNT 5.02 mill/uL (4.7-6.1); RED CELL DISTRIBUTION WIDTH 17.7 % (11.6-14.6)
[2020-02-22 06:17] LABS: PHOSPHORUS 6.5 mg/dL (2.5-4.9)
[2020-02-22 07:52] LABS: BG BASE EXCESS -4.1 mmol/L (-2.0-2.0); BG CARBOXYHEMOGLOBIN 1.4 % (0.5-1.5); BG DEOXYHEMOGLOBIN 8.4 % (0.0-5.0); BG FRACTION INSPIRED OXYGEN 60; BG HCO3 ACT 23.2 mmol/L (22.0-26.0); BG METHEMOGLOBIN 0.5 % (0.0-1.5); BG OXYGEN SATURATION 91.4 % (92.0-98.5); BG OXYHEMOGLOBIN 89.7 % (94.0-97.0); BG PH 7.276 (7.350-7.450); BG PO2 65.1 mmHg (75.0-100.0); BG SAMPLE SITE RIGHT RADIAL; BG TIDAL VOLUME(mL) 550 mL; BG TOTAL HEMOGLOBIN 14.6 g/dL (12.0-18.0); BG VENT MODE VENT - A/C; BG VENT RATE 28 set
[2020-02-22 08:17] LABS: NUCLEATED RED BLOOD CELLS 1 /100 WBC
[2020-02-22 08:21] LABS: PLATELET ESTIMATE DECREASED
[2020-02-22] MEDS: METRONIDAZOLE 500MG TABLET PO SCH ×2 (09:17→21:10)
[2020-02-22] MEDS: AMIODARONE HCL 200 MG TABLET PO SCH (09:17)
[2020-02-22] MEDS: PANTOPRAZOLE SODIUM 40 MG/VIAL IV SCH (09:17)
[2020-02-22] MEDS: CEFEPIME 2,000 MG in DEXT 5% WATER 100 ML IV SCH (16:50)
[2020-02-22] MEDS ORDERED: VANCOMYCIN 750 MG PREMIX 150 ML IV SCH (17:00)
[2020-02-22 20:56] LABS: BG CARBOXYHEMOGLOBIN 1.3 % (0.5-1.5); BG DEOXYHEMOGLOBIN 11.6 % (0.0-5.0); BG FRACTION INSPIRED OXYGEN 60; BG METHEMOGLOBIN 0.2 % (0.0-1.5); BG OXYGEN SATURATION 88.2 % (92.0-98.5); BG OXYHEMOGLOBIN 86.9 % (94.0-97.0); BG PH 7.287 (7.350-7.450); BG SAMPLE SITE LEFT RADIAL; BG TIDAL VOLUME(mL) 550 mL; BG TOTAL HEMOGLOBIN 14.4 g/dL (12.0-18.0); BG VENT MODE VENT - A/C; BG VENT RATE 28 set
[2020-02-22] MEDS ORDERED: SODIUM POLYSTYRENE SULFONATE 15 G/60 ML BOT PO NR (22:00)
[2020-02-22] MEDS: PHENYLEPHRINE 80 MG in DEXT 5% WATER 492 ML IV PRN (22:14)
[2020-02-23] VITALS (103 sets, daily range): BP systolic 66–131; BP diastolic 31–78
[2020-02-23] MEDS: METOCLOPRAMIDE HCL 10MG/2ML VIAL IV SCH ×4 (05:03→23:22)
[2020-02-23 05:16] LABS: HEMATOCRIT. 41.8 % (42.0-52.0); HEMOGLOBIN. 13.1 g/dL (14.0-18.0); MEAN CORPUSCULAR HEMOGLOBIN 27.6 pg (28.0-32.0); MEAN CORPUSCULAR VOLUME 88.2 fL (80.0-94.0); MEAN PLATELET VOLUME 10.8 fl (7.4-10.4); PLATELET 79 x1000/uL (130-400); RED BLOOD CELL COUNT 4.74 mill/uL (4.7-6.1); RED CELL DISTRIBUTION WIDTH 17.8 % (11.6-14.6)
[2020-02-23] MEDS: FENTANYL CITRATE/PF 1,000 MCG in SODIUM CHLORIDE 0.9% 80 ML IV PRN ×2 (07:09→23:22)
[2020-02-23 08:07] LABS: PLATELET ESTIMATE DECREASED
[2020-02-23 08:13] LABS: BG BASE EXCESS -3.6 mmol/L (-2.0-2.0); BG CARBOXYHEMOGLOBIN 1.1 % (0.5-1.5); BG DEOXYHEMOGLOBIN 13.9 % (0.0-5.0); BG FRACTION INSPIRED OXYGEN 80; BG HCO3 ACT 24.7 mmol/L (22.0-26.0); BG METHEMOGLOBIN 0.4 % (0.0-1.5); BG OXYGEN SATURATION 85.9 % (92.0-98.5); BG OXYHEMOGLOBIN 84.6 % (94.0-97.0); BG PCO2 58.3 mmHg (35.0-45.0); BG PH 7.245 (7.350-7.450); BG PO2 57.5 mmHg (75.0-100.0); BG SAMPLE SITE RIGHT RADIAL; BG TIDAL VOLUME(mL) 550 mL; BG TOTAL HEMOGLOBIN 14.3 g/dL (12.0-18.0); BG VENT MODE VENT - A/C; BG VENT RATE 28 set
[2020-02-23] MEDS: AMIODARONE HCL 200 MG TABLET PO SCH (08:53)
[2020-02-23] MEDS: PANTOPRAZOLE SODIUM 40 MG/VIAL IV SCH (08:53)
[2020-02-23] MEDS: METRONIDAZOLE 500MG TABLET PO SCH ×2 (08:53→20:17)
[2020-02-23] MEDS ORDERED: MANNITOL 12.5G (25%) VIAL 50ML IV NR (11:00)
[2020-02-23 12:02] LABS: BG BASE EXCESS -0.1 mmol/L (-2.0-2.0); BG CARBOXYHEMOGLOBIN 0.8 % (0.5-1.5); BG DEOXYHEMOGLOBIN 6.8 % (0.0-5.0); BG FRACTION INSPIRED OXYGEN 80; BG HCO3 ACT 29.2 mmol/L (22.0-26.0); BG METHEMOGLOBIN 0.5 % (0.0-1.5); BG OXYGEN SATURATION 93.1 % (92.0-98.5); BG OXYHEMOGLOBIN 91.9 % (94.0-97.0); BG PCO2 69.4 mmHg (35.0-45.0); BG PH 7.242 (7.350-7.450); BG PO2 75.1 mmHg (75.0-100.0); BG SAMPLE SITE RIGHT RADIAL; BG TIDAL VOLUME(mL) 550 mL; BG TOTAL HEMOGLOBIN 14.5 g/dL (12.0-18.0); BG VENT MODE VENT - A/C; BG VENT RATE 30 set
[2020-02-23] MEDS ORDERED: HEPARIN SODIUM 1,000 UNIT/1ML VIAL IV NR (13:30)
[2020-02-23 15:47] LABS: BG BASE EXCESS -5.7 mmol/L (-2.0-2.0); BG CARBOXYHEMOGLOBIN 1.2 % (0.5-1.5); BG DEOXYHEMOGLOBIN 3.3 % (0.0-5.0); BG FRACTION INSPIRED OXYGEN 80; BG HCO3 ACT 21.7 mmol/L (22.0-26.0); BG METHEMOGLOBIN 0.3 % (0.0-1.5); BG OXYGEN SATURATION 96.6 % (92.0-98.5); BG OXYHEMOGLOBIN 95.2 % (94.0-97.0); BG PCO2 49.4 mmHg (35.0-45.0); BG PO2 91.1 mmHg (75.0-100.0); BG SAMPLE SITE RIGHT RADIAL; BG TIDAL VOLUME(mL) 600 mL; BG TOTAL HEMOGLOBIN 14.4 g/dL (12.0-18.0); BG VENT MODE VENT - A/C; BG VENT RATE 30 set
[2020-02-23] MEDS: CEFEPIME 2,000 MG in DEXT 5% WATER 100 ML IV SCH (17:02)
[2020-02-23] MEDS: PHENYLEPHRINE 80 MG in DEXT 5% WATER 492 ML IV PRN (18:07)
[2020-02-24] VITALS (92 sets, daily range): BP systolic 82–145; BP diastolic 41–86
[2020-02-24] MEDS: VASOPRESSIN 10 UNIT in SODIUM CHLORIDE 0.9% 99.5 ML IV PRN (02:00)
[2020-02-24] MEDS: PHENYLEPHRINE 80 MG in DEXT 5% WATER 492 ML IV PRN ×3 (02:28→21:19)
[2020-02-24] MEDS: METOCLOPRAMIDE HCL 10MG/2ML VIAL IV SCH ×4 (05:26→23:43)
[2020-02-24 06:23] LABS: HEMATOCRIT. 40.3 % (42.0-52.0); HEMOGLOBIN. 12.6 g/dL (14.0-18.0); MEAN CORPUSCULAR HEMOGLOBIN 27.8 pg (28.0-32.0); MEAN CORPUSCULAR VOLUME 88.8 fL (80.0-94.0); MEAN PLATELET VOLUME 10.2 fl (7.4-10.4); PLATELET 76 x1000/uL (130-400); RED BLOOD CELL COUNT 4.54 mill/uL (4.7-6.1); RED CELL DISTRIBUTION WIDTH 17.6 % (11.6-14.6)
[2020-02-24 06:48] LABS: PHOSPHORUS 6.3 mg/dL (2.5-4.9)
[2020-02-24] MEDS: METRONIDAZOLE 500MG TABLET PO SCH ×2 (09:00→21:18)
[2020-02-24] MEDS: AMIODARONE HCL 200 MG TABLET PO SCH (09:00)
[2020-02-24] MEDS: PANTOPRAZOLE SODIUM 40 MG/VIAL IV SCH (09:00)
[2020-02-24 10:06] LABS: BG BASE EXCESS -3.1 mmol/L (-2.0-2.0); BG CARBOXYHEMOGLOBIN 0.9 % (0.5-1.5); BG DEOXYHEMOGLOBIN 3.4 % (0.0-5.0); BG FRACTION INSPIRED OXYGEN 70; BG HCO3 ACT 22.6 mmol/L (22.0-26.0); BG METHEMOGLOBIN 0.3 % (0.0-1.5); BG OXYGEN SATURATION 96.6 % (92.0-98.5); BG OXYHEMOGLOBIN 95.4 % (94.0-97.0); BG PCO2 42.9 mmHg (35.0-45.0); BG PO2 93.8 mmHg (75.0-100.0); BG SAMPLE SITE RIGHT RADIAL; BG TIDAL VOLUME(mL) 600 mL; BG TOTAL HEMOGLOBIN 13.5 g/dL (12.0-18.0); BG VENT MODE VENT - A/C; BG VENT RATE 30 set
[2020-02-24 11:51] LABS: PLATELET ESTIMATE DECREASED
[2020-02-24] MEDS: FENTANYL CITRATE/PF 1,000 MCG in SODIUM CHLORIDE 0.9% 80 ML IV PRN (13:53)
[2020-02-24] MEDS: CEFEPIME 2,000 MG in DEXT 5% WATER 100 ML IV SCH (17:02)
[2020-02-25] VITALS (81 sets, daily range): BP systolic 80–155; BP diastolic 50–85
[2020-02-25] MEDS: METOCLOPRAMIDE HCL 10MG/2ML VIAL IV SCH ×4 (05:29→23:26)
[2020-02-25 06:19] LABS: HEMATOCRIT. 36.9 % (42.0-52.0); HEMOGLOBIN. 11.6 g/dL (14.0-18.0); MEAN CORPUSCULAR HEMOGLOBIN 27.6 pg (28.0-32.0); MEAN PLATELET VOLUME 10.9 fl (7.4-10.4); PLATELET 77 x1000/uL (130-400); RED BLOOD CELL COUNT 4.19 mill/uL (4.7-6.1); RED CELL DISTRIBUTION WIDTH 17.7 % (11.6-14.6)
[2020-02-25] MEDS: PHENYLEPHRINE 80 MG in DEXT 5% WATER 492 ML IV PRN ×2 (06:45→16:27)
[2020-02-25] MEDS: FENTANYL CITRATE/PF 1,000 MCG in SODIUM CHLORIDE 0.9% 80 ML IV PRN ×2 (06:51→23:26)
[2020-02-25 09:02] LABS: BG BASE EXCESS -6.1 mmol/L (-2.0-2.0); BG CARBOXYHEMOGLOBIN 0.9 % (0.5-1.5); BG DEOXYHEMOGLOBIN 2.9 % (0.0-5.0); BG FRACTION INSPIRED OXYGEN 65; BG HCO3 ACT 18.3 mmol/L (22.0-26.0); BG METHEMOGLOBIN 0.2 % (0.0-1.5); BG OXYGEN SATURATION 97.1 % (92.0-98.5); BG PCO2 32.9 mmHg (35.0-45.0); BG PH 7.364 (7.350-7.450); BG SAMPLE SITE RIGHT RADIAL; BG TIDAL VOLUME(mL) 600 mL; BG TOTAL HEMOGLOBIN 12.2 g/dL (12.0-18.0); BG VENT MODE VENT - A/C; BG VENT RATE 30 set
[2020-02-25] MEDS: AMIODARONE HCL 200 MG TABLET PO SCH (11:56)
[2020-02-25] MEDS: PANTOPRAZOLE SODIUM 40 MG/VIAL IV SCH (11:56)
[2020-02-25] MEDS: METRONIDAZOLE 500MG TABLET PO SCH ×2 (11:57→21:19)
[2020-02-25 14:16] LABS: NUCLEATED RED BLOOD CELLS 1 /100 WBC
[2020-02-25 14:17] LABS: PLATELET ESTIMATE DECREASED
[2020-02-25] MEDS ORDERED: VANCOMYCIN 750 MG PREMIX 150 ML IV NR (15:00)
[2020-02-25] MEDS: CEFEPIME 2,000 MG in DEXT 5% WATER 100 ML IV SCH (17:16)
[2020-02-26] VITALS (92 sets, daily range): BP systolic 80–142; BP diastolic 40–75
[2020-02-26] MEDS: METOCLOPRAMIDE HCL 10MG/2ML VIAL IV SCH ×3 (05:10→17:43)
[2020-02-26 05:39] LABS: HEMOGLOBIN. 10.7 g/dL (14.0-18.0); MEAN CORPUSCULAR HEMOGLOBIN 27.6 pg (28.0-32.0); MEAN CORPUSCULAR VOLUME 87.3 fL (80.0-94.0); MEAN PLATELET VOLUME 11.1 fl (7.4-10.4); PLATELET 69 x1000/uL (130-400); RED BLOOD CELL COUNT 3.89 mill/uL (4.7-6.1); RED CELL DISTRIBUTION WIDTH 17.5 % (11.6-14.6)
[2020-02-26 08:58] LABS: BG BASE EXCESS -0.1 mmol/L (-2.0-2.0); BG CARBOXYHEMOGLOBIN 0.7 % (0.5-1.5); BG DEOXYHEMOGLOBIN 5.1 % (0.0-5.0); BG FRACTION INSPIRED OXYGEN 55; BG HCO3 ACT 25.1 mmol/L (22.0-26.0); BG METHEMOGLOBIN 0.3 % (0.0-1.5); BG OXYGEN SATURATION 94.8 % (92.0-98.5); BG OXYHEMOGLOBIN 93.9 % (94.0-97.0); BG PCO2 42.9 mmHg (35.0-45.0); BG PH 7.385 (7.350-7.450); BG PO2 80.1 mmHg (75.0-100.0); BG SAMPLE SITE RIGHT RADIAL; BG TIDAL VOLUME(mL) 600 mL; BG TOTAL HEMOGLOBIN 11.2 g/dL (12.0-18.0); BG VENT MODE VENT - A/C; BG VENT RATE 30 set
[2020-02-26] MEDS: METRONIDAZOLE 500MG TABLET PO SCH ×2 (09:14→21:09)
[2020-02-26] MEDS: PANTOPRAZOLE SODIUM 40 MG/VIAL IV SCH (09:14)
[2020-02-26] MEDS: AMIODARONE HCL 200 MG TABLET PO SCH (09:15)
[2020-02-26 14:17] LABS: NUCLEATED RED BLOOD CELLS 1 /100 WBC; PLATELET ESTIMATE DECREASED
[2020-02-26] MEDS: FENTANYL CITRATE/PF 1,000 MCG in SODIUM CHLORIDE 0.9% 80 ML IV PRN (16:11)
[2020-02-26] MEDS: CEFEPIME 2,000 MG in DEXT 5% WATER 100 ML IV SCH (17:44)
[2020-02-27] VITALS (51 sets, daily range): BP systolic 74–158; BP diastolic 30–100
[2020-02-27] MEDS: METOCLOPRAMIDE HCL 10MG/2ML VIAL IV SCH ×3 (00:07→11:19)
[2020-02-27] MEDS: FENTANYL CITRATE/PF 1,000 MCG in SODIUM CHLORIDE 0.9% 80 ML IV PRN (07:52)
[2020-02-27] MEDS: METRONIDAZOLE 500MG TABLET PO SCH (08:00)
[2020-02-27] MEDS: AMIODARONE HCL 200 MG TABLET PO SCH (08:00)
[2020-02-27] MEDS: PANTOPRAZOLE SODIUM 40 MG/VIAL IV SCH (08:00)
[2020-02-27 09:42] LABS: HEMATOCRIT. 30.6 % (42.0-52.0); HEMOGLOBIN. 9.7 g/dL (14.0-18.0); MEAN CORPUSCULAR VOLUME 88.1 fL (80.0-94.0); MEAN PLATELET VOLUME 11.6 fl (7.4-10.4); PLATELET 73 x1000/uL (130-400); RED BLOOD CELL COUNT 3.47 mill/uL (4.7-6.1); RED CELL DISTRIBUTION WIDTH 17.9 % (11.6-14.6)
[2020-02-27] MEDS ORDERED: MORPHINE SULFATE 2 MG/ML CPJ (NOT FOR IM USE) IV PRN (14:00)
[2020-02-27] MEDS ORDERED: LORAZEPAM 2MG/ML CPJ IV PRN (14:00)
[2020-02-27] MEDS ORDERED: FENTANYL CITRATE/PF 1,000 MCG in SODIUM CHLORIDE 0.9% 80 ML IV PRN (14:00)
[2020-02-27 14:19] LABS: PLATELET ESTIMATE DECREASED
[2020-02-27] MEDS ORDERED: MORPHINE SULFATE 250 MG in DEXT 5% WATER 225 ML IV PRN (15:45)
== END 2020-02-27 20:30 | disposition expired | DRG 870 ==
LOC: ER 15:01 → MICUSO 17:11 → 7WST 02-12 03:35 → MICUSO 02-12 08:37 → CVICU 02-13 11:14
PROVIDERS: ADMIT Hospitalist; ATTEND Hospitalist
PROC: 5A1955Z Respiratory Ventilation, Greater than 96 Consecutive Hours (ICD-10-PCS; principal; 2020-02-12)
PROC: 5A12012 Performance of Cardiac Output, Single, Manual (ICD-10-PCS; 2020-02-12)
PROC: 0BH17EZ Insertion of Endotracheal Airway into Trachea, Via Natural or Artificial Opening (ICD-10-PCS; 2020-02-12)
PROC: 06HY33Z Insertion of Infusion Device into Lower Vein, Percutaneous Approach (ICD-10-PCS; 2020-02-12)
PROC: B54BZZA Ultrasonography of Right Lower Extremity Veins, Guidance (ICD-10-PCS; 2020-02-12)
PROC: 02HV33Z Insertion of Infusion Device into Superior Vena Cava, Percutaneous Approach (ICD-10-PCS; 2020-02-15)
PROC: B548ZZA Ultrasonography of Superior Vena Cava, Guidance (ICD-10-PCS; 2020-02-15)
PROC: 3E05317 Introduction of Other Thrombolytic into Peripheral Artery, Percutaneous Approach (ICD-10-PCS; 2020-02-19)
PROC: B41F1ZZ Fluoroscopy of Right Lower Extremity Arteries using Low Osmolar Contrast (ICD-10-PCS; 2020-02-19)
PROC: B41C1ZZ Fluoroscopy of Pelvic Arteries using Low Osmolar Contrast (ICD-10-PCS; 2020-02-19)
PROC: 5A1D70Z Performance of Urinary Filtration, Intermittent, Less than 6 Hours Per Day (ICD-10-PCS; 2020-02-21)
PROC: 05HY33Z Insertion of Infusion Device into Upper Vein, Percutaneous Approach (ICD-10-PCS; 2020-02-21)
PROC: B54MZZA Ultrasonography of Right Upper Extremity Veins, Guidance (ICD-10-PCS; 2020-02-21)
PROC: 5A1D70Z Performance of Urinary Filtration, Intermittent, Less than 6 Hours Per Day (ICD-10-PCS; 2020-02-22)
PROC: 5A1D70Z Performance of Urinary Filtration, Intermittent, Less than 6 Hours Per Day (ICD-10-PCS; 2020-02-23)
PROC: 5A1D70Z Performance of Urinary Filtration, Intermittent, Less than 6 Hours Per Day (ICD-10-PCS; 2020-02-25)
DX: A41.50 Gram-negative sepsis, unspecified (principal); J96.01 Acute respiratory failure with hypoxia; R65.21 Severe sepsis with septic shock; J69.0 Pneumonitis due to inhalation of food and vomit; E43 Unspecified severe protein-calorie malnutrition; I50.43 Acute on chronic combined systolic (congestive) and diastolic (congestive) heart failure; J96.02 Acute respiratory failure with hypercapnia; D65 Disseminated intravascular coagulation [defibrination syndrome]; N17.0 Acute kidney failure with tubular necrosis; E87.0 Hyperosmolality and hypernatremia; J44.0 Chronic obstructive pulmonary disease with (acute) lower respiratory infection; D68.9 Coagulation defect, unspecified; I42.9 Cardiomyopathy, unspecified; I13.0 Hypertensive heart and chronic kidney disease with heart failure and stage 1 through stage 4 chronic kidney disease, or unspecified chronic kidney disease; I48.92 Unspecified atrial flutter; E87.1 Hypo-osmolality and hyponatremia; E87.2 Acidosis; G93.40 Encephalopathy, unspecified; I70.261 Atherosclerosis of native arteries of extremities with gangrene, right leg; I46.9 Cardiac arrest, cause unspecified; E78.5 Hyperlipidemia, unspecified; I27.81 Cor pulmonale (chronic); N18.1 Chronic kidney disease, stage 1; K57.30 Diverticulosis of large intestine without perforation or abscess without bleeding; N40.0 Benign prostatic hyperplasia without lower urinary tract symptoms; I48.91 Unspecified atrial fibrillation; I25.10 Atherosclerotic heart disease of native coronary artery without angina pectoris; D64.9 Anemia, unspecified; R74.0 Nonspecific elevation of levels of transaminase and lactic acid dehydrogenase [LDH]; R91.8 Other nonspecific abnormal finding of lung field; N20.0 Calculus of kidney; Z20.828 Contact with and (suspected) exposure to other viral communicable diseases; R73.9 Hyperglycemia, unspecified; I70.8 Atherosclerosis of other arteries; I99.8 Other disorder of circulatory system; S90.821A Blister (nonthermal), right foot, initial encounter; L89.896 Pressure-induced deep tissue damage of other site; D75.82 Heparin induced thrombocytopenia (HIT); T45.515A Adverse effect of anticoagulants, initial encounter; Y92.238 Other place in hospital as the place of occurrence of the external cause; X58.XXXA Exposure to other specified factors, initial encounter; Y93.89 Activity, other specified; Y99.8 Other external cause status; Z99.81 Dependence on supplemental oxygen; Y92.89 Other specified places as the place of occurrence of the external cause; I25.2 Old myocardial infarction; Z68.21 Body mass index [BMI] 21.0-21.9, adult; Z87.891 Personal history of nicotine dependence; Z78.1 Physical restraint status
CPT/HCPCS: 36415; 36600; 37211; 71045; 74176; 75710; 76857; 76937; 80048; 80053; 80061; 80202; 81003; 82375; 82542; 82550; 82784; 82805; 82962; 83880; 84100; 84478; 84484; 85025; 85347; 85362; 85379; 85384; 86022; 86334; 86705; 86706; 86709; 86803; 87070; 87077; 87186; 87340; 93005; 93306; 93923; 93970; 94003; 96365; 99291; C1725; C1757; C1769; C1893; C1894; C9113; J0282; J0360; J0456; J0692; J0696; J1160; J1644; J1650; J1940; J2150; J2250; J2370; J2405; J2543; J2765; J2920; J2997; J3010; J3370; J3490; J7042; J7050; J7060; Q9967; U0003-CS